=== PATIENT | female | born 1985 | race Caucasian/White ===

== ENCOUNTER 2017-12-01 01:53 | Emergency (ER) | payer OTHER ==
[2017-12-01] MEDS ORDERED: Amoxicillin 500 MG Cap PO ONE (01:54)
[2017-12-01] MEDS ORDERED: Lidocaine 2% Viscous Solution 15 ML Cup PO ONE (01:54)
[2017-12-01 01:58] VITALS: BP 141/94
[2017-12-01] MEDS ORDERED: Lidocaine 2% Viscous Solution 15 ML Cup ONE (02:16)
[2017-12-01] MEDS ORDERED: Amoxicillin 500 MG Cap ONE (02:16)
--- NOTE | 2017-12-01 02:25 | EDM.PDOC ---
ED HPI GENERAL MEDICAL PROBLEM - General Chief Complaint: ENT Problem Stated Complaint: MOUTH PAIN [id number] Time Seen by Provider: 12/01/17 02:00 Source of Information: Reports: Patient History Limitations: Reports: No Limitations - History of Present Illness INITIAL COMMENTS - FREE TEXT/NARRATIVE: C/O sever right lower tooth pain radiating to jaw and ear. Started this afternoon. Tylenol not helping with pain. 34 weeks . 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 ED EXAM, ENT - Physical Exam Exam: See Below Exam Limited By: No Limitations General Appearance: Alert, Mild Distress Eye Exam: Bilateral Eye: EOMI Ears: Normal External Exam. No: Mastoid Swelling, Mastoid Tenderness Nose: Normal Inspection Mouth/Throat: Dental Tenderness (right lower 2nd molar) Course - Vital Signs Last Recorded V/S: Last Vital Signs Temp 97.3 F 12/01/17 01:54 Pulse 105 H 12/01/17 01:54 Resp 18 12/01/17 01:54 BP 141/94 H 12/01/17 01:54 Pulse Ox 99 12/01/17 01:54 - Orders/Labs/Meds Meds: Medications Discontinued Medications Generic Name Dose Route Start Last Admin Trade Name Freq PRN Reason Stop Dose Admin Amoxicillin Confirm 12/01/17 02:16 12/01/17 02:19 Amoxil Administered 12/01/17 02:17 Not Given Dose 1,000 mg .ROUTE .STK-MED ONE Lidocaine HCl Confirm 12/01/17 02:16 12/01/17 02:19 Xylocaine 2% Viscous Administered 12/01/17 02:17 Not Given Dose 15 ml .ROUTE .STK-MED ONE Departure - Departure Time of Disposition: 02:20 Disposition: Home, Self-Care 01 Condition: Good Clinical Impression: Dental abscess, Dental caries, Third trimester - Discharge Information *PRESCRIPTION DRUG MONITORING PROGRAM REVIEWED*: Not Applicable Instructions: Dental Abscess Referrals: PCP,None [Primary Care Provider] - Forms: ED Department Discharge Additional Instructions: room temperature liquids, chew on opposite sides Dentist early week viscous lidocaine apply thin film around tooth every 2 hours as needed for pain continue tylenol every 4 hours as needed amoxicillin 500mg one three times daily for one week
== END 2017-12-01 02:25 | disposition home or self-care (01) ==
LOC: DL.ED 01:53
DX: O99.613 Diseases of the digestive system complicating pregnancy, third trimester (principal); F17.210 Nicotine dependence, cigarettes, uncomplicated; K04.7 Periapical abscess without sinus; K02.9 Dental caries, unspecified; Z79.82 Long term (current) use of aspirin; Z3A.34 34 weeks gestation of pregnancy
CPT/HCPCS: 99282

== ENCOUNTER 2018-01-07 06:01 | Inpatient (IN) | payer OTHER ==
[~2018-01-07 06:01] MED LIST: Citric Acid/Sodium Citrate Solution 30 ML Cup PO ONE; Lactated Ringers 1,000 ML IV SCH; Methylergonovine 0.2 MG Tab PO PRN; Sodium Chloride 0.9% 10 ML Syringe FLUSH PRN; Tranexamic Acid 1,000 MG in Sodium Chloride 0.9% 100 ML IV PRN; ceFAZolin 2 GM in Premix Bag 1 BAG IV ONE
[2018-01-07] MEDS: Lactated Ringers 1,000 ML IV SCH ×3 (06:15→20:15)
[2018-01-07] MEDS ORDERED: Oxytocin/Normal Saline 60 UNIT/1,000 ML BAG ONE (07:05)
[2018-01-07] MEDS ORDERED: Acetaminophen 325 MG Tab PO PRN (07:29)
[2018-01-07] MEDS ORDERED: diphenhydrAMINE 50 MG/ML SDV IVPUSH PRN (07:29)
[2018-01-07] MEDS ORDERED: Methylergonovine 0.2 MG/1 ML Amp IM PRN (07:29)
[2018-01-07] MEDS ORDERED: Carboprost Tromethamine 250 MCG/1 ML Amp IM ONE (07:29)
[2018-01-07] MEDS ORDERED: Acetaminophen/oxyCODONE 325-5 MG Tab PO PRN (07:29)
[2018-01-07] MEDS ORDERED: Naloxone 2 MG/2 ML Syringe IVPUSH PRN (07:29)
[2018-01-07] MEDS ORDERED: ePHEDrine 50 MG/ML SDV IVPUSH PRN (07:29)
[2018-01-07] MEDS ORDERED: Misoprostol 400 MCG (4 X 100 MCG TAB) RECTAL PRN (07:29)
[2018-01-07] MEDS ORDERED: Lactated Ringers 1,000 ML IV SCH (07:30)
[2018-01-07] MEDS ORDERED: ceFAZolin 1 GM Vial IVPUSH SCH (07:30)
[2018-01-07] MEDS ORDERED: Oxytocin/Normal Saline 30 UNIT/500 ML BAG IV SCH (09:30)
[2018-01-07] MEDS ORDERED: Oxytocin/Normal Saline 30 UNIT/500 ML BAG IV ONE (10:13)
[2018-01-07] MEDS: Prenatal Multivitamin with Calcium/Folic Acid/Iron Tab PO SCH (12:29)
[2018-01-07] MEDS: Ferrous Sulfate 325 MG Tab PO SCH (12:29)
[2018-01-07] MEDS: Simethicone 80 MG Tab.Chew PO SCH ×4 (12:29→20:59)
[2018-01-07] MEDS: ceFAZolin 1 GM in Premix Bag 1 BAG IV SCH ×2 (13:54→21:55)
[2018-01-07] MEDS: Ketorolac 30 MG/ML SDV IVPUSH SCH ×2 (13:55→20:08)
[2018-01-07] MEDS: Ondansetron 4 MG/2 ML SDV IVPUSH PRN ×2 (13:59→17:34)
[2018-01-07] MEDS ORDERED: Famotidine 20 MG/2 ML SDV IVPUSH ONE (15:33)
--- NOTE | 2018-01-07 18:15 | OR ---
DATE: 01/07/2018 PREPROCEDURE DIAGNOSES: 1. 3, para 0-1-1-1. 2. Blood type A positive, rubella immune, group B streptococcus status unknown. 3. Smoker. 4. History of gestational hypertension, prior . 5. History of delivery, prior . 6. History of molar . 7. Bacterial vaginosis in the first trimester. 8. History of prior section and the patient declines trial of labor after . POSTPROCEDURE DIAGNOSES: 1. 3, para 1-1-1-2. 2. Blood type A positive, rubella immune, group B streptococcus status unknown. 3. Smoker. 4. History of gestational hypertension, prior . 5. History of delivery, prior . 6. History of molar . 7. Bacterial vaginosis in the first trimester. 8. History of prior section and the patient declines trial of labor after . 9. Status post repeat low transverse section with vacuum assistance. 10.Delivery of viable male . BRIEF HISTORY: A 32-year-old female presents to the hospital this morning for planned elective repeat section at term. During her prior , she had presented with severe gestational hypertension, not controlled with medications, had negative PIH labs; however, also had a category II tracing and borderline oligohydramnios with an ANGI of 6.4 and ultimately delivered by C- section. This she has received excellent care and was treated with aspirin to prevent preeclampsia and has done well, not needing any blood pressure medications, and no other complications during the . She has elected to proceed with repeat surgical delivery as outlined below. CONSENT: Discussed with the patient and her significant other indications, risks, benefits, and alternatives to repeat low transverse section, risks including infection and plan for pre and postoperative antibiotics in her case; anticipation for a bleeding that could require blood transfusion as well as its inherent risks; risk of injury to any large blood vessels, nerves, veins, internal organs, adjacent structures, including but not limited to, bladder, uterus, fallopian tubes, ovaries, bowels, fascia, even potential injury to the baby, potential for complications that would require transfer to a higher level of care for mother or baby and even remote risk of . Their questions were answered. Consent forms were signed and placed in the chart. SURGEON: Marguerite Conte MD AIRCRAFT PART ASSEMBLER: Anna Marie Patterson MD DESCRIPTION OF PROCEDURE: The patient was brought to the operating room and spinal anesthesia obtained. She was laid in dorsal supine position with leftward tilt and prepped and draped in the usual fashion with Reed indwelling catheter in place, draining clear yellow urine. A skin incision was made in an elliptical fashion in order to remove a small pustular-type lesion on the incision site itself to decrease the risk of postoperative infection. The subcutaneous tissue was then with cautery and traction. Fascia opened with cautery in the usual fashion. Superior fascial edge grasped, tented up, and rectus muscles dissected off with cautery. Inferior fascial edge grasped with Stephane, tented up, and rectus muscles dissected off with cautery. Rectus muscles were in the midline with hemostat and blunt finger dissection used to enter the peritoneal cavity. William O retractor was then placed. Bladder flap created. Low transverse uterine incision was made just superior to the prior hysterotomy scar because the baby's head in this case was lower in the pelvis and the lower uterine segment was well developed. The uterine incision was made with scalpel. There was some difficulty delivering the head out of the hysterotomy site; therefore, vacuum assistance was called for and used. The hysterotomy was also extended bilaterally using bandage scissors, curving upward at the lateral edges to avoid the vasculature in the broad ligament. After the baby's head was delivered. Nuchal cord x1 was reduced bluntly. Remainder of the delivered with some difficulty thereafter, took approximately 2 minutes from uterine incision to baby's delivery time. 's mouth and nose were bulb suctioned. Three-vessel umbilical cord was doubly clamped and cut. Baby was taken to the warmer for further evaluation. Cord blood sample was then obtained and placenta delivered by gentle cord traction and concomitant uterine massage. Uterus cleared of all clots and debris with a dry lap sponge, and hysterotomy site closed with a running stitch of 1-0 Vicryl in the usual fashion. This layer was hemostatic. There were some small bleeders controlled with cautery. Hemostasis was verified. William retractor removed. Paracolic gutters were cleared of any clots or debris. Hysterotomy site was reinspected and remained hemostatic. Peritoneal layer closed with an additional stitch of 1-0 Vicryl. This layer was then irrigated and cleared of any clots and debris and fascia closed with 0 looped PDS in a running simple fashion. The subcutaneous tissues were then irrigated, cleared of any clots and debris, and skin closed with casandra. Excellent cosmetic result achieved and ellipse closed nicely without any dog ears or tags. The patient tolerated the procedure well and there were no complications. FINDINGS: Viable male . scores of 7 and 9. Weight 3610 g, 7 pounds 15 ounces. Head 14-1/2 inches, chest 13-3/4 inches, length is 20-1/2 inches. Start time for the procedure was 8:15, uterine incision at 8:25, baby at 8:27, placenta at 8:29, and procedure completed at 8:54. ESTIMATED BLOOD LOSS: 300 mL. FLUIDS: Crystalloids, 1600 mL of LR; Pitocin 300 mL. URINE OUTPUT: 175 mL, clear. DISPOSITION: Mother and baby will go to the PACU and Nursery respectively and will meet up again as soon as possible for skin to skin. [facility] /[id number] YURI
[2018-01-07] MEDS ORDERED: Promethazine 25 MG/ML SDV IM ONE (18:37)
[2018-01-08] MEDS: Ketorolac 30 MG/ML SDV IVPUSH SCH (01:55)
[2018-01-08] MEDS: Lactated Ringers 1,000 ML IV SCH (05:02)
[2018-01-08] MEDS: ceFAZolin 1 GM in Premix Bag 1 BAG IV SCH (06:02)
[2018-01-08] MEDS: Prenatal Multivitamin with Calcium/Folic Acid/Iron Tab PO SCH (09:40)
[2018-01-08] MEDS: Simethicone 80 MG Tab.Chew PO SCH ×4 (09:40→21:46)
[2018-01-08] MEDS: Ferrous Sulfate 325 MG Tab PO SCH (09:40)
--- NOTE | 2018-01-08 11:22 | PN ---
DATE: 01/08/2018 SUBJECTIVE: Postoperative day #1, status post repeat low transverse section without complications, doing well, ambulating, tolerating regular diet. Today and yesterday, had several episodes of nausea and had the baby supplemented a couple of times because of that. Otherwise, no acute complaints. Pain has been well controlled. No chest pain or shortness of breath. We will plan on getting the Reed catheter and SCDs off and out later this morning. OBJECTIVE: General: Healthy, well-appearing 32-year-old female. Vital Signs: Per [employer], which I cannot get to pull up at this time. Heart: Regular without obvious murmur. Lungs: Clear to auscultation bilaterally. Abdomen: Soft and nontender. Dressing is clean, dry, and intact. Bowel sounds are hypoactive, but present in all 4 quadrants. Extremities: SCDs and VILMA hose are on. No palpable edema noted. Negative Homans sign. LABORATORY DATA: Cannot pull up on [employer] at this time. ASSESSMENT: 1. Status post repeat low transverse section day #1. 2. 3, now para 1-1-1-2. 3. Blood type A positive, rubella immune. 4. Smoker. 5. History gestational hypertension, prior . 6. History of delivery because of complications prior delivery. 7. History of molar . 8. Bacterial vaginosis in the first trimester. 9. History of section x2. PLAN: Continue normal postoperative cares and anticipate discharge home in 1 to 2 days pending clinical course and assuming that all goes well. [facility] /[id number]
[2018-01-08] MEDS ORDERED: Dexamethasone 4 MG/ML SDV IV ONE (11:33)
[2018-01-08] MEDS ORDERED: Bupivacaine 0.75%/D5W 2 ML Amp INJECT ONE (11:33)
[2018-01-08] MEDS ORDERED: Lactated Ringers 1,000 ML IV ONE (11:33)
[2018-01-08] MEDS ORDERED: Ondansetron 4 MG/2 ML SDV IV ONE (11:33)
[2018-01-08] MEDS ORDERED: Morphine PF 1 MG/ML Amp ONE (11:33)
[2018-01-08] MEDS ORDERED: Ketorolac 30 MG/ML SDV IVPUSH ONE (11:33)
[2018-01-08] MEDS: Ibuprofen 800 MG Tab PO PRN (15:24)
[2018-01-08] MEDS: Acetaminophen/oxyCODONE 325-5 MG Tab PO PRN ×2 (18:07→23:24)
[2018-01-08] MEDS: Docusate Sodium 100 MG Cap PO PRN (21:46)
[2018-01-09] MEDS: Ibuprofen 800 MG Tab PO PRN ×2 (05:14→13:46)
[2018-01-09] MEDS: Acetaminophen/oxyCODONE 325-5 MG Tab PO PRN ×3 (05:15→13:45)
[2018-01-09] MEDS: Prenatal Multivitamin with Calcium/Folic Acid/Iron Tab PO SCH (08:17)
[2018-01-09] MEDS: Docusate Sodium 100 MG Cap PO PRN (08:17)
[2018-01-09] MEDS: Ferrous Sulfate 325 MG Tab PO SCH (08:17)
[2018-01-09] MEDS: Simethicone 80 MG Tab.Chew PO SCH ×2 (08:18→13:45)
[2018-01-09 08:48] VITALS: BP 127/73
--- NOTE | 2018-01-10 17:46 | DISCH ---
ADMITTING DIAGNOSES: 1. A 39 and 2/7 weeks' intrauterine based on last menstrual period and 10-week ultrasound. 2. 3, para 1-0-1-1. 3. Blood type A positive. Rubella immune. Group B streptococcus unknown. 4. History of gestational hypertension, prior causing need for delivery. 5. History of molar . 6. History of section. 7. Bacterial vaginosis, treated in the first trimester. 8. Smoker. 9. Anemia of . DISCHARGE DIAGNOSES: 1. A 39 and 2/7 weeks' intrauterine based on last menstrual period and 10-week ultrasound. 2. 3, para 1-0-1-1. 3. Blood type A positive. Rubella immune. Group B streptococcus unknown. 4. History of gestational hypertension, prior causing need for delivery. 5. History of molar . 6. History of section. 7. Bacterial vaginosis, treated in the first trimester. 8. Smoker. 9. Status post repeat low transverse section with vacuum assistance. 10.Anemia of acute blood loss from surgery. BRIEF HISTORY: A 32-year-old female admitted to the hospital for planned elective repeat section at term. Please see admission history and physical and operative report for full details. Procedures were carried out without complications. Blood loss was actually only about 300 to 400 mL and quite good. HOSPITAL COURSE: Hospital course has been good. The patient was up and ambulating on the night of surgery. On the morning of postop, she had her Reed catheter and SCDs removed. She was tolerating regular diet, passing flatus, not having any chest pain or shortness of breath. No symptoms of anemia. her baby and overall doing quite well and was prepared for discharge on postoperative day #2. Admission hemoglobin was noted to be 11.2, discharge of 9.2. Admission platelets 247, discharge of 211. DISCHARGE CONDITION: Good. PHYSICAL EXAMINATION: Vital Signs: Temperature is 97.8, pulse 94, blood pressure 127/73, respiratory rate of 16, and O2 saturations 100% on room air. Heart: Regular without murmur. Lungs: Clear to auscultation bilaterally. Abdomen: Soft and nontender. Fundus is firm and below the umbilicus. Incision site is clean, dry, and intact with casandra intact. DISPOSITION: Home with family. MEDICATIONS: 1. Percocet 5/325 one to two tablets every 4 to 6 hours as needed for pain. 2. Ibuprofen 600 mg every 6 hours as needed for pain. 3. Colace 100 mg twice daily as needed for constipation. 4. Iron 325 mg twice daily for anemia. 5. vitamin, continue 1 daily. FOLLOWUP: She will be seen in the office in 7 to 10 days for staple removal and postoperative check and then again for her 6-week exam. INSTRUCTIONS: Routine post care instructions were provided. Also, discussed reasons to call the clinic or return for care sooner if she has any complications such as bleeding, wound drainage, fever, increased pain, bowel or bladder concerns, or any other issues arise. Her questions were answered. [facility] /[id number]
== END 2018-01-09 15:15 | disposition home or self-care (01) | DRG 766 ==
LOC: DL.MS 06:01 → OBSVTOIN 08:27
PROVIDERS: ADMIT Family Medicine; ATTEND Family Medicine
PROC: 6A550ZT Pheresis of Cord Blood Stem Cells, Single (ICD-10-PCS; principal; 2018-01-07)
PROC: 10D00Z1 Extraction of Products of Conception, Low, Open Approach (ICD-10-PCS; principal; 2018-01-07)
DX: O34.211 Maternal care for low transverse scar from previous cesarean delivery (principal); Z3A.39 39 weeks gestation of pregnancy; Z37.0 Single live birth; Z67.10 Type A blood, Rh positive; O99.334 Smoking (tobacco) complicating childbirth; F17.210 Nicotine dependence, cigarettes, uncomplicated
CPT/HCPCS: 36415; 59025; 85025; 85027; 86850; 86900; 86901; A9270-GY; J0690; J1100; J1885; J2274; J2405; J2550; J2590; J3490; J7120

== ENCOUNTER 2020-03-04 11:13 | Emergency (ER) | payer OTHER, SELFPAY ==
[2020-03-04 11:30] VITALS: BP 136/80; PULSE 101
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
[2020-03-04 12:31] LABS: ANION GAP 12.2 mEq/L (7-13); CHLORIDE,CL 101 mmol/L (98-107); SODIUM,NA 136 mmol/L (136-145)
--- NOTE | 2020-03-04 13:25 | CT ---
EXAMINATION: Head wo Cont SEX: Female AGE: 34 years CLINICAL HISTORY: 34-year-old 224 pound "confused" female with headache, visual changes and arm numbness. Scan technique: Volume acquisition of data emergency unenhanced CT scan of the head and brain obtained with the patient lying supine on the Siemens multislice scanner [place], [place]. All data archived in the PACS system for storage, reformatting axial/sagittal/coronal planes and study (bone/brain windows). Interpretation: 1. Ventricular asymmetry. Anatomic variant possible but cannot exclude low-grade infiltrating neoplasm left cerebral hemisphere or even older ischemic change basal ganglia on the right. Doubt positional artifact. Unenhanced MRI recommended. 2. No other suggestion of supratentorial or posterior fossa mass lesion. Midline pineal calcifications. 3. No ischemic infarct or signs of encephalomalacia. 4. Uniformly thick bony calvarium. Symmetric clear pneumatization of the paranasal and mastoid sinuses. 5. No sign of acute intracerebral, intraventricular or subarachnoid bleed. No abnormal extracerebral/intracranial epidural or subdural hematoma. 6. Normal cerebellum and brainstem. CONCLUSION: Ventricular asymmetry (see above). Unenhanced MRI suggested. Otherwise negative emergency unenhanced CT scan of the head and brain.
--- NOTE | 2020-03-04 14:09 | MR ---
EXAMINATION: Brain wo Cont SEX: Female AGE: 34 years CLINICAL HISTORY: 34-year-old female with sudden onset of headache, confusion (forgetfulness) and visual change with emergency CT revealed "asymmetry of the ventricles". Scan technique: Unenhanced sagittal T1 and multisequence (T1, T2, FLAIR, and diffusion-weighted imaging) axial images of the head and brain obtained with the patient lying supine on the [employer] 1.[employer] magnet [place], [place]. All data archived in the PACS system for storage, reformatting and study. Interpretation: 1. Lateral ventricular "asymmetry" confirmed but not associated with underlying mass or infarct and presumably reflects congenital or normal variant for this patient. Choroid plexus unremarkable. 2. No supratentorial or posterior fossa mass lesion. No extracerebral/intracranial epidural or subdural hematoma. 3. No focal areas of ischemic infarct or signs of encephalomalacia. No demyelination. No arachnoid cysts. 4. No sign of acute intracerebral, intraventricular or subarachnoid bleed. 5. Cerebellum and brainstem unremarkable. 6. No inflammatory changes of the mastoid or paranasal sinuses. CONCLUSION: Negative exam.
[2020-03-04] MEDS ORDERED: Ketorolac 30 MG/ML SDV IM ONE (14:36)
== END 2020-03-04 14:48 | disposition home or self-care (01) ==
LOC: DL.ED 11:13
DX: Q28.3 Other malformations of cerebral vessels (principal); R51.9 Headache, unspecified; E66.9 Obesity, unspecified; Z68.36 Body mass index [BMI] 36.0-36.9, adult; F17.210 Nicotine dependence, cigarettes, uncomplicated
CPT/HCPCS: 36415; 70450; 70551; 80053; 81025; 85025; 96372; 99283; 99284-25; J1885

== ENCOUNTER 2020-07-19 15:19 | Emergency (ER) | payer OTHER | END 2020-07-19 17:59 | disposition left against medical advice (07) | LOC: DL.ED 15:19 | DX: Z53.21 Procedure and treatment not carried out due to patient leaving prior to being seen by health care provider (principal) ==

== ENCOUNTER 2021-10-08 12:06 | Emergency (ER) | payer OTHER ==
[2021-10-08 13:00] VITALS: BP 138/98; PULSE 95
== END 2021-10-08 15:15 | disposition left against medical advice (07) ==
LOC: DL.ED 12:06
DX: Z53.21 Procedure and treatment not carried out due to patient leaving prior to being seen by health care provider (principal)

== ENCOUNTER 2024-06-16 09:22 | Emergency (ER) | payer OTHER ==
[2024-06-16 09:40] VITALS: BP 171/119; PULSE 100
[2024-06-16] MEDS: Lidocaine 1% 30 ML SDV INJECT ONE (09:45)
[2024-06-16] MEDS: Bupivacaine 0.25% 10 ML SDV INJECT ONE (09:45)
== END 2024-06-16 10:15 | disposition home or self-care (01) ==
LOC: DL.ED 09:22
DX: K02.9 Dental caries, unspecified (principal); E66.9 Obesity, unspecified; Z68.39 Body mass index [BMI] 39.0-39.9, adult
CPT/HCPCS: 64400; 99282; J0665; J3490

== ENCOUNTER 2024-07-23 19:11 | Emergency (ER) | payer OTHER ==
[2024-07-23 19:38] LABS: BASOPHILS PERCENT AUTO 0.2 % (0.0-1.0); EOSINOPHILS PERCENT AUTO 1.1 % (1.0-3.0); HEMATOCRIT 39.6 % (37.0-47.0); HEMOGLOBIN 12.8 g/dL (12.0-16.0); LYMPHOCYTES PERCENT AUTO 18.8 % (20.5-50.1); MEAN CORPUSCULAR HEMOGLOBIN 26.9 pg (27.0-34.0); MEAN CORPUSCULAR HGB CONC 32.3 g/dL (33.0-35.0); MEAN CORPUSCULAR VOLUME 83.2 fL (80-100); NEUTROPHILS PERCENT AUTO 74.9 % (42.2-75.2); PLATELET COUNT,PLT 315 10^3/uL (150-450); RED BLOOD CELL COUNT 4.76 10^6/uL (4.2-5.4)
[2024-07-23] MEDS: Sodium Chloride 0.9% 1,000 ML IV ONE (19:40)
[2024-07-23] MEDS: Ondansetron 8 MG in Sodium Chloride 0.9% 50 ML IV ONE (19:40)
[2024-07-23] MEDS: Acetaminophen 500 MG Tab PO ONE (19:45)
[2024-07-23] MEDS: Ondansetron 4 MG/2 ML SDV ONE (19:47)
[2024-07-23 20:00] LABS: ALANINE AMINOTRANSFERASE,ALT 25 U/L (14-59); ALBUMIN 3.3 g/dL (3.4-5.0); ALKALINE PHOSPHATASE 88 U/L (46-116); ANION GAP 17.5 mEq/L (7-13); ASPARTATE AMNIOTRANSFERASE,AST 17 U/L (15-37); BILIRUBIN TOTAL 0.2 mg/dL (0.2-1.0); BLOOD UREA NITROGEN,BUN 8 mg/dL (7-18); BUN/CREATININE RATIO 8.8 (No establ ref range); CALCIUM 8.9 mg/dL (8.5-10.1); CARBON DIOXIDE,CO2 21 mmol/L (21-32); CHLORIDE,CL 102 mmol/L (98-107); CREATININE 0.91 mg/dL (0.55-1.02); ESTIMATED GFR 83 mL/min (>=60); GLUCOSE RANDOM 135 mg/dL (70-99); MAGNESIUM 1.9 mg/dL (1.8-2.4); POTASSIUM,K 3.5 mmol/L (3.5-5.1); SODIUM,NA 137 mmol/L (136-145)
[2024-07-23] MEDS: Iopamidol 755 Mg/ML 100 ML Bottle IVPUSH ONE (20:29)
[2024-07-23 22:09] VITALS: BP 144/96; PULSE 125
== END 2024-07-23 23:00 ==
LOC: DL.ED 19:11
DX: K35.80 Unspecified acute appendicitis (principal); E66.9 Obesity, unspecified
CPT/HCPCS: 36415; 74177; 80053; 83735; 84703; 85025; 96361; 96374; 99285; A9270; J2405; J3490; J7030; Q9967